=== PATIENT | male | born 2000 | race Caucasian/White ===

== ENCOUNTER 2018-04-02 11:02 | Emergency (ER) | payer SELFPAY ==
[2018-04-02 11:14] VITALS: BMI 22.0
[2018-04-02 11:15] VITALS: O2SAT 99
[2018-04-02] MEDS ORDERED: Sodium Chloride 0.9% 1,000 ML IV STA (11:22)
--- NOTE | 2018-04-02 11:42 | ED PDOC ---
HPI: General Adult Time Seen by Provider: 04/02/18 11:18 Chief Complaint (Nursing): ENT Problem Chief Complaint (Provider): sore throat fever History Per: Patient, Family (mother) History/Exam Limitations: clinical condition Onset/Duration Of Symptoms: Gradual Current Symptoms Are (Timing): Still Present Severity: Severe Additional Complaint(s): 17yo male c/o worsening sore throat and fever now ongoing 3-4 days, difficulty swallowing and speaking but denies SOB, dizziness, rash or significant neck pain. No prior history of similar symptoms. Past Medical History Reviewed: Historical Data, Nursing Documentation, Vital Signs Vital Signs: Last Vital Signs Temp 98.6 F 04/02/18 15:43 Pulse 64 04/02/18 15:43 Resp 14 04/02/18 15:43 BP 126/56 L 04/02/18 15:43 Pulse Ox 99 04/02/18 15:43 - Medical History PMH: No Chronic Diseases - Family History Family History: States: Unknown Family Hx - Living Arrangements Living Arrangements: With Family - Social History Current smoker - smoking cessation education provided: No Drugs: Cannabis - Immunization History Hx Tetanus Toxoid Vaccination: No - Home Medications Home Medications: Ambulatory Orders Medication Instructions Recorded Acetaminophen with Codeine 1 tab PO .Q4-6 H #20 tab 01/02/16 [Tylenol with Codeine No. 3 300 mg-30 mg] Cephalexin [Keflex] 500 mg PO Q6 #28 cap 01/02/16 Sulfamethoxazole/Trimethoprim 1 tab PO BID #14 tab 01/26/16 [Bactrim DS 800 mg-160 mg] Clindamycin [Cleocin] 300 mg PO TID #21 cap 04/02/18 Ibuprofen [Motrin Tab] 600 mg PO Q6 PRN #15 tab 04/02/18 - Allergies Allergies/Adverse Reactions: Allergies Allergy/AdvReac Type Severity Reaction Status Date / Time No Known Allergies Allergy Verified 04/02/18 11:20 Review of Systems Constitutional: Positive for: Fever, Chills, Malaise ENT: Positive for: Throat Pain, Throat Swelling. Negative for: Ear Discharge, Mouth Pain Cardiovascular: Negative for: Chest Pain Respiratory: Negative for: Cough Gastrointestinal: Negative for: Abdominal Pain Genitourinary Male: Negative for: Dysuria Musculoskeletal: Negative for: Neck Pain Skin: Negative for: Rash Neurological: Positive for: Headache. Negative for: Weakness, Numbness Psych: Negative for: Depression Physical Exam - Reviewed Nursing Documentation Reviewed: Yes Vital Signs Reviewed: Yes - Physical Exam Appears: Positive for: Well, Non-toxic, No Acute Distress Head Exam: Positive for: ATRAUMATIC, NORMAL INSPECTION, NORMOCEPHALIC Skin: Positive for: Normal Color, Warm, DRY Eye Exam: Positive for: EOMI, Normal appearance, PERRL ENT: Positive for: Tonsillar Exudate, Tonsillar Swelling, Other (+pharyngeal/ tonsilar edema and exudates) Neck: Positive for: Normal, Painless ROM Cardiovascular/Chest: Positive for: Regular Rate, Rhythm Respiratory: Positive for: CNT, Normal Breath Sounds Gastrointestinal/Abdominal: Positive for: Normal Exam, Soft Back: Positive for: Normal Inspection Extremity: Positive for: Normal ROM Neurologic/Psych: Positive for: Alert, Oriented - Laboratory Results Result Diagrams: 04/02/18 11:50 04/02/18 11:50 - ECG O2 Sat by Pulse Oximetry: 99 Medical Decision Making Medical Decision Making: Dr Molina campus receptionist ENT saw patient in ED and thinks likely mono, obtain CT imaging and labs, decadon and Abx. 15:50 -Results discussed with patient. He reports improvement of symptoms w/o any drooling or dysphagia. Patient will be discharged with antibiotics and advised to follow up with ENT and/or clinic. Disposition - Clinical Impression Clinical Impression: Tonsillitis - Disposition Referrals: David Molina MD [Staff Provider] - Disposition: Routine/Home Disposition Time: 15:50 Condition: STABLE Additional Instructions: Followup with ENT doctor and or PMD in 2-3 days. Return to ER for any worse or new symptoms. Take antibiotics as directed. Avoid physical activity or sports until mono negative. Followup mono tests in 4-5 days. Avoid close contact with others RETURN TO ER FOR ANY WORSE OR NEW SYMPTOMS, INABILITY TO SWALLOW OR ANY WORSE OR NEW SYMPTOMS. Prescriptions: Clindamycin [Cleocin] 300 mg PO TID #21 cap Ibuprofen [Motrin Tab] 600 mg PO Q6 PRN #15 tab PRN Reason: Pain, Moderate (4-7) Instructions: Sore Throat, Adult (DC), Tonsillectomy (DC) Forms: [place] ([place])
[2018-04-02 12:06] LABS: BASO % 0.3 % (0.0-2.0); EOS # 0.1 K/uL (0.0-0.7); EOS % 0.5 % (0.0-4.0); LYMPH # 1.9 K/uL (1.0-4.3); LYMPH % 11.6 % (20.0-40.0); MEAN CELL VOLUME 89.9 fl (80.0-94.0); MEAN CORPUSCULAR HEMOGLOBIN 31.5 pg (27.0-31.0); MEAN CORPUSCULAR HGB CONC 35.1 g/dL (33.0-37.0); MEAN PLATELET VOLUME 7.9 fl (7.2-11.7); MONO % 12.3 % (0.0-10.0); NEUT # 12.4 K/uL (1.8-7.0); NEUT % 75.3 % (50.0-75.0); NRBC % 0.1 % (0.0-0.0); RBC 5.4 Mil/uL (4.40-5.90); RED CELL DISTRIBUTION WIDTH 12.7 % (11.5-14.5); WHITE BLOOD COUNT 16.5 K/uL (4.8-10.8)
[2018-04-02 12:16] LABS: ALBUMIN 4.4 g/dL (3.5-5.0); ALT/SGPT 27 U/L (21-72); AST/SGOT 27 U/L (17-59); BLOOD UREA NITROGEN 11 mg/dl (9-20); CALCIUM 9.8 mg/dL (8.4-10.2); GFR NON-AFRICAN AMERICAN > 60
[2018-04-02 12:21] LABS: INR 1.4; PROTHROMBIN TIME 15.2 Seconds (9.8-13.1)
[2018-04-02 12:23] LABS: PARTIAL THROMBOPLASTIN TIME 35.1 Seconds (25.6-37.1)
[2018-04-02] MEDS ORDERED: Iohexol 300 100 ML IJ ONE (12:54)
[2018-04-02] MEDS ORDERED: Sodium Chloride 0.9% 50 ML IV ONE (12:54)
--- NOTE | 2018-04-02 14:39 | CT ---
Date of service: 04/02/2018 PROCEDURE: CT NECK WITH CONTRAST HISTORY: r/o KNIFE EDGER COMPARISON: None available. TECHNIQUE: CT of the neck with intravenous contrast. Coronal and sagittal reformats generated. Intravenous contrast dose: 90 mL Omnipaque 300 Radiation dose: DLP 276.62 mGy-cm This CT exam was performed using one or more of the following dose reduction techniques: Automated exposure control, adjustment of the mA and/or kV according to patient size, and/or use of iterative reconstruction technique. FINDINGS: NASOPHARYNX: Unremarkable. SUPRAHYOID NECK: There is marked enlargement of the palatine tonsils. There is no evidence of peritonsillar abscess. The lingual tonsils are mildly prominent. The adenoidal tonsils are prominent. There is no mass or fluid collection. The epiglottis is normal in appearance. INFRAHYOID NECK: Unremarkable larynx, hypopharynx, and supraglottic space. Vocal cords intact. MASS: None. GLANDS: Parotid and submandibular glands unremarkable. Normal size thyroid gland, without nodule. LYMPH NODES: Shotty level 1 and 2 cervical nodes. Several frankly enlarged bilateral level 2 nodes are seen, up to 1.5 cm in short axis. CERVICAL SPINE: No fracture or focal lesion. VASCULAR STRUCTURES: Unremarkable. OTHER FINDINGS: None. IMPRESSION: Tonsillar enlargement, most prominently in the palatine tonsils. No evidence of peritonsillar abscess. Mild cervical lymphadenopathy with several frankly enlarged level 2 nodes bilaterally. No additional abnormality
[2018-04-02 15:44] VITALS: BP 126/56; PULSE 64; RESP 14; TEMP 98.6
[2018-04-03] MEDS ORDERED: Dexamethasone 10 MG in Sodium Chloride 0.9% 50 ML IVPB SCH (09:00)
== END 2018-04-02 15:55 | disposition home or self-care (01) ==
LOC: H.ER 11:02
DX: J35.1 Hypertrophy of tonsils (principal); R13.10 Dysphagia, unspecified
CPT/HCPCS: 70491; 80053; 85025; 85610; 85730; 96361; 96365; 96375; 99283; J0295; J1100; J7030; Q9967